=== PATIENT | female | born 1955 | race Two or more races ===

== ENCOUNTER 2016-12-18 14:42 | Emergency (ER) | payer MEDICARE, MEDICAID ==
[~2016-12-18] VITALS: Ht 160 cm; Wt 73.1 kg
[2016-12-18 14:58] VITALS: BP 120/74
[2016-12-18] MEDS ORDERED: FAMOTIDINE 20 MG TABLET ONE (15:49)
[2016-12-18] MEDS ORDERED: FAMOTIDINE 20 MG TABLET PO ONE (16:00)
[2016-12-18 16:01] LABS: ASPARTATE AMINO TRANSFERASE 27 U/L (15-37); BLOOD UREA NITROGEN 9 mg/dL (7-18)
== END 2016-12-18 16:59 | disposition home or self-care (01) ==
LOC: ED 16:43
DX: T50.905A Adverse effect of unspecified drugs, medicaments and biological substances, initial encounter (principal); R21 Rash and other nonspecific skin eruption; L50.9 Urticaria, unspecified; Y92.9 Unspecified place or not applicable
CPT/HCPCS: 36415; 80053; 85025; 99284; J7512; Q0177